=== PATIENT | female | born 1980 | race Caucasian/White ===

== ENCOUNTER 2022-03-01 11:01 | Outpatient (CLI) | payer OTHER | END 2022-03-01 11:02 | disposition critical access hospital (66) | LOC: EMS 11:01 | DX: R06.02 Shortness of breath (principal); R05.9 Cough, unspecified | CPT/HCPCS: A0425; A0429 ==

== ENCOUNTER 2022-03-01 11:41 | Emergency (ER) | payer MEDICAID, OTHER ==
[2022-03-01] MEDS ORDERED: ALBUTEROL 1 PUFF INH STA (12:53)
--- NOTE | 2022-03-01 12:56 | ED Physician Documentation ---
History of Present Illness - Stated complaint Stated Complaint: SOA/COVID+ - Chief complaint Chief Complaint: Resp - Additonal information Additional information: 41-year-old female presents emergency department for evaluation of shortness of air and chest pain in the setting of recent COVID-19 infection. She is fully vaccinated and boosted. However on February 15 she began to have cough cold and congestion. She tested positive for COVID. She has over the course of the last 2 weeks had worsening cough and chest pain. States that she often has pain behind her heart radiating to her back. No nausea or vomiting. She was at work today and had A coughing episode and her coworkers encouraged her to come to the emergency department. She is tearful and anxious appearing. Her asks me to "drug her up" Review of Systems Constitutional: denies: Fever, Chills Eyes: reports: Reviewed and negative Nose: reports: Congestion Throat: reports: Reviewed and negative Cardiac: reports: Chest pain / pressure Respiratory: reports: Dyspnea, Cough, Wheezing GI: reports: Reviewed and negative : reports: Reviewed and negative Skin: reports: Reviewed and negative Musculoskeletal: reports: Reviewed and negative PD PAST MEDICAL HISTORY - Present Medications Home Medications: Ambulatory Orders Medication Instructions Recorded Confirmed Albuterol Sulf [Ventolin Hfa 1 - 2 puffs INH Q4HR PRN #1 each 03/01/22 Inhaler] Benzonatate [Tessalon] 200 mg PO TID PRN #20 cap 03/01/22 - Allergies Allergies/Adverse Reactions: Allergies Allergy/AdvReac Type Severity Reaction Status Date / Time No Known Drug Allergies Allergy Verified 03/01/22 11:51 PD ED PE NORMAL - General General: Alert and oriented X 3. No: No acute distress (Anxious appearing) - HEENT HEENT: Atraumatic, Moist mucous membranes - Neck Neck: Supple, no meningeal sign, No adenopathy - Cardiac Cardiac: RRR, No murmur, No gallop - Respiratory Respiratory: No respiratory distress. No: Clear bilaterally (Bilateral upper lobe rhonchi. Faint scattered expiratory wheezes) - Abdomen Abdomen: Normal bowel sounds, Soft - Back Back: No CVA TTP, No spinal TTP - Derm Derm: Normal color, Warm and dry, No rash - Extremities Extremities: No deformity - Neuro Neuro: Alert and oriented X 3 Eye Opening: Spontaneous Motor: Obeys Commands Verbal: Oriented GCS Score: 15 Results - Vitals Vitals: Vital Signs - 24 hr 03/01/22 03/01/22 03/01/22 11:51 12:16 13:09 Temperature 37.0 C 37.1 C Heart Rate 102 H 86 80 Respiratory 18 20 18 Rate Blood Pressure 144/91 H 169/119 H O2 Saturation 99 99 03/01/22 14:00 Temperature Heart Rate 105 H Respiratory 27 H Rate Blood Pressure 128/85 H O2 Saturation 99 Oxygen O2 Source Room air - EKG (time done) 1158 Rate: Rate (enter#) (92) Rhythm: NSR [place]: Normal Intervals: Normal [place]. No: Prolonged QT QRS: Normal Ischemia: Non specific changes Compare to prior EKG: Old EKG unavailable Computer interpretation: Agree with computer - Labs Labs: Laboratory Tests 03/01/22 03/01/22 03/01/22 13:01 13:01 13:01 WBC 10.5 RBC 4.33 Hgb 13.4 Hct 40.5 MCV 93.5 MCH 30.9 MCHC 33.1 RDW 12.5 Plt Count 232 MPV 13.8 H Neut # (Auto) 7.0 H Lymph # (Auto) 2.6 [place] # (Auto) 0.8 Eos # (Auto) 0.0 Baso # (Auto) 0.0 Absolute Nucleated RBC 0.00 Nucleated RBC % 0.0 Sodium 139 Potassium 3.8 Chloride 107 Carbon Dioxide 23 Anion Gap 9.0 BUN 7 Creatinine 0.6 Estimated GFR (MDRD) 111 Glucose 95 Calcium 8.6 Total Bilirubin 0.7 AST 27 ALT 68 H Alkaline Phosphatase 71 Troponin I High Sens 2.8 Total Protein 6.8 Albumin 4.1 Globulin 2.7 Albumin/Globulin Ratio 1.5 Lipase 28 - Rads (name of study) cxr Radiology: Final report received (No acute cardiopulmonary process demonstrated radiographically) PD MEDICAL DECISION MAKING - ED course Complexity details: reviewed results, re-evaluated patient, considered differential, d/w patient ED course: 41-year-old female presents emergency department for evaluation of persistent cough that began after COVID-19 infection on 15 February. Patient is vaccinated and boosted. She reports that she is having chest pain especially when breathing. She has been using DayQuil and NyQuil without relief of symptoms. She tested negative for COVID 4 days ago. She had a coughing spell at work which prompted the ER visit. On presentation she is alert well-appearing though crying and anxious. Simply reports she is tired of being sick. No fevers. No hypoxia. On cardiopulmonary auscultation there were some diffuse rhonchi and faint wheezes. We did give her some albuterol here in the emergency department which fully resolve the wheeze and improve the cough. Chest x-ray showed no acute findings. Given the report of chest pain a screening EKG was also completed and found to be nonischemic. Given duration of symptoms 1 negative biomarker should suffice and it was reassuringly negative. CBC showed no worrisome leukocytosis and electrolytes without acute abnormalities. 9 at this time there is no indication for antibiotics given lack of focal opacity in the chest x-ray. By Wells criteria she is considered low risk for PE and we deferred a D-dimer or chest CT study. I making the recommendation to use albuterol as well as Tessalon Perles at home for control of the cough. She is encouraged to follow closely with her primary care provider. Emergent return precautions were discussed for failure symptoms to resolve. Departure - Departure Disposition: Home, Self Care Clinical Impression: Upper respiratory infection Qualifiers: URI type: unspecified URI Qualified Code(s): J06.9 - Acute upper respiratory infection, unspecified Condition: Stable Record reviewed to determine appropriate education?: Yes Prescriptions: Albuterol Sulf [Ventolin Hfa Inhaler] 1 - 2 puffs INH Q4HR PRN #1 each PRN Reason: Shortness Of Air/Wheezing Benzonatate [Tessalon] 200 mg PO TID PRN #20 cap PRN Reason: Cough Comments: Yasmin you are seen today in the emergency department because you have had a persistent cough that began after recent COVID-19 infection on 15 February. Here in the emergency department your chest x-ray is normal. There is nothing to suggest broken ribs, congestive heart failure or even pneumonia. We did do a CBC, electrolytes as well as her troponin. All your labs are essentially normal. In order to help control the cough in the emergency department we did give you some albuterol. I would encourage you to use this at home 4-6 times a day with a spacer. This can help reduce bronchospasm that may be contributing to your cough. I have also sent a prescription for Tessalon Perles a cough suppressant to the [facility] in [place]. A dose of Sudafed 30 mg once or twice daily can help with nasal congestion and reduce postnasal drip that is contributing to your symptoms. Ibuprofen 600 mg can be helpful for the body aches and chest pains. If you find that your symptoms or not getting better over the course of the next 7 to 10 days, you develop new fevers, have any fainting episodes and please return immediately to the ER but I do encourage you to have very close follow-up with your primary care doctor to discuss this ED visit.
--- NOTE | 2022-03-01 13:00 | XRAY Report ---
PROCEDURE: Chest 1 View X-Ray INDICATIONS: Chest pain TECHNIQUE: One view of the chest was acquired. COMPARISON: None. FINDINGS: Surgical changes and devices: None. Lungs and pleura: No pleural effusions or pneumothorax. Lungs are clear. Mediastinum: Mediastinal contours appear normal. Heart size is normal. Bones and chest wall: No suspicious bony lesions. Overlying soft tissues appear unremarkable. IMPRESSION: No acute cardiopulmonary process demonstrated radiographically. Reviewed by: Harshad Araiza MD on 03/01/2022 12:59 PM PST Approved by: Harshad Araiza MD on 03/01/2022 12:59 PM PST Station ID: [id number]
[2022-03-01 13:15] LABS: BASOPHILS % (AUTO) 0.3 %; EOSINOPHILS % (AUTO) 0.2 %; HCT - HEMATOCRIT 40.5 % (37.0-47.0); HGB - HEMOGLOBIN 13.4 g/dL (12.0-16.0); LYMPHOCYTES # (AUTO) 2.6 10^3/uL (1.5-3.5); LYMPHOCYTES % (AUTO) 24.8 %; MEAN CORPUSCULAR HEMOGLOBIN 30.9 pg (27.0-31.0); MEAN CORPUSCULAR HGB CONC 33.1 g/dL (32.0-36.0); MEAN CORPUSCULAR VOLUME 93.5 fL (81.0-99.0); MEAN PLATELET VOLUME 13.8 fL (7.9-10.8); MONOCYTES # (AUTO) 0.8 10^3/uL (0.0-1.0); MONOCYTES % (AUTO) 7.8 %; NEUTROPHILS % (AUTO) 66.5 %; PLT - PLATELET COUNT 232 10^3/uL (130-450); RED BLOOD COUNT 4.33 10^6/uL (4.20-5.40); RED CELL DISTRIBUTION WIDTH 12.5 % (12.0-15.0); WHITE BLOOD COUNT 10.5 x10^3/uL (4.8-10.8)
[2022-03-01 13:37] LABS: ALBUMIN 4.1 g/dL (3.2-5.5); ALBUMIN/GLOBULIN RATIO 1.5 (1.0-2.2); BILIRUBIN,TOTAL 0.7 mg/dL (0.2-1.0); CALCIUM 8.6 mg/dL (8.5-10.3); CREATININE 0.6 mg/dL (0.4-1.0); POTASSIUM 3.8 mmol/L (3.5-5.0); TOTAL PROTEIN 6.8 g/dL (6.7-8.2)
[2022-03-01 14:04] VITALS: BP 128/85
== END 2022-03-01 14:58 | disposition home or self-care (01) ==
LOC: EDUNIT# → ED 11:41
DX: J06.9 Acute upper respiratory infection, unspecified (principal)
CPT/HCPCS: 36415; 80053; 83690; 84484; 85025; 93005; 94640; 99284

== ENCOUNTER 2022-11-14 09:40 | Outpatient (CLI) | payer OTHER ==
[2022-11-14 10:06] LABS: BASOPHILS # (AUTO) 0.1 10^3/uL (0.0-0.1); BASOPHILS % (AUTO) 0.6 %; EOSINOPHILS # (AUTO) 0.2 10^3/uL (0.0-0.7); EOSINOPHILS % (AUTO) 1.8 %; HCT - HEMATOCRIT 44.1 % (37.0-47.0); HGB - HEMOGLOBIN 14.6 g/dL (12.0-16.0); LYMPHOCYTES # (AUTO) 2.8 10^3/uL (1.5-3.5); MEAN CORPUSCULAR HEMOGLOBIN 31.3 pg (27.0-31.0); MEAN CORPUSCULAR HGB CONC 33.1 g/dL (32.0-36.0); MEAN CORPUSCULAR VOLUME 94.6 fL (81.0-99.0); MEAN PLATELET VOLUME 13.4 fL (7.9-10.8); MONOCYTES # (AUTO) 0.7 10^3/uL (0.0-1.0); NEUTROPHILS # (AUTO) 5.3 10^3/uL (1.5-6.6); NEUTROPHILS % (AUTO) 58.2 %; PLT - PLATELET COUNT 242 10^3/uL (130-450); RED BLOOD COUNT 4.66 10^6/uL (4.20-5.40); RED CELL DISTRIBUTION WIDTH 12.3 % (12.0-15.0)
== END 2022-11-14 09:41 | disposition home or self-care (01) ==
LOC: LAB 09:40
PROVIDERS: ATTEND Obstetrics & Gynecology
DX: Z01.812 Encounter for preprocedural laboratory examination (principal); N93.9 Abnormal uterine and vaginal bleeding, unspecified
CPT/HCPCS: 36415; 85025; 86850; 86900; 86901

== ENCOUNTER 2022-11-15 07:55 | Day surgery (SDC) | payer OTHER ==
[2022-11-15] MEDS ORDERED: ceFAZolin 2 GM VIAL ONE (08:11)
[2022-11-15 08:15] LABS: HCG UR QUAL NEGATIVE
[2022-11-15] MEDS ORDERED: fentaNYL 100 MCG/2 ML VIAL ONE (08:23)
[2022-11-15] MEDS ORDERED: MIDAZOLAM 2 MG/2 ML VIAL ONE (08:23)
[2022-11-15] MEDS ORDERED: LIDOCAINE 2% URO-JET 5 ML SYRINGE UR ONE (08:32)
[2022-11-15] MEDS ORDERED: LIDOCAINE 1%-EPI 1:100000 20 ML MDV ONE (08:32)
[2022-11-15] MEDS ORDERED: METHYLENE BLUE 0.5% 50 MG/10 ML AMPULE ONE (08:32)
[2022-11-15] MEDS ORDERED: BUPIVACAINE 0.25% PF 30 ML VIAL ONE (08:33)
[2022-11-15] MEDS ORDERED: LACTATED RINGERS 1,000 ML IV ONE ×2 (08:34→13:40)
[2022-11-15] MEDS ORDERED: VASOPRESSIN 20 UNIT/ML VIAL ONE (08:35)
[2022-11-15] MEDS ORDERED: ONDANSETRON 4 MG/2 ML VIAL ONE (09:16)
[2022-11-15] MEDS ORDERED: ACETAMINOPHEN 1,000 MG/100 ML 1,000 MG/100 ML BAG IV ONE (09:16)
[2022-11-15] MEDS ORDERED: ROCURONIUM 50 MG/5 ML VIAL ONE (09:16)
[2022-11-15] MEDS ORDERED: PROPOFOL 500 MG/50 ML 500 MG/50 ML VIAL ONE ×2 (09:16→09:52)
[2022-11-15] MEDS ORDERED: KETOROLAC 30 MG/ML VIAL ONE (09:16)
[2022-11-15] MEDS ORDERED: DEXAMETHASONE 4 MG/ML VIAL ONE (09:16)
[2022-11-15] MEDS ORDERED: fentaNYL 100 MCG/2 ML VIAL IVP PRN (09:22)
[2022-11-15] MEDS ORDERED: NALOXONE 0.4 MG/ML VIAL IVP PRN (09:22)
[2022-11-15] MEDS ORDERED: ATROPINE ABBOJECT 1 MG/10 ML SYRINGE IVP PRN (09:22)
[2022-11-15] MEDS ORDERED: ONDANSETRON 4 MG/2 ML VIAL IVP PRN (09:22)
[2022-11-15] MEDS ORDERED: ePHEDrine 50 MG/ML VIAL IVP PRN (09:22)
[2022-11-15] MEDS ORDERED: HYDROmorphone 0.5 MG/0.5 ML SYRINGE IVP PRN (09:22)
--- NOTE | 2022-11-15 09:22 | ANESTHESIA ---
Pre-Anesthesia VS, & Labs - Diagnosis abnormal uterine bleeding - Procedure total lap hysterectomy Vital Signs: Temp Pulse Resp BP Pulse Ox O2 Flow Rate 36 C L 88 18 136/90 H 99 11/15/22 08:16 11/15/22 08:16 11/15/22 08:16 11/15/22 08:16 11/15/22 08:16 Height: 5 ft 4 in Weight (kg): 84 kg Body Mass Index: 31.8 BMI Classification: Obese - NPO >8 hours - Is Patient ?: No - Lab Results Lab results reviewed: Yes Home Medications and Allergies Home Medications: Ambulatory Orders Gabapentin [Neurontin] 300 mg PO HS 11/10/22 Propranolol HCl 20 mg PO QPM 11/10/22 Gabapentin [Neurontin] 300 mg PO HS 11/10/22 Propranolol HCl 20 mg PO QPM 11/10/22 Allergies/Adverse Reactions: Allergies Allergy/AdvReac Type Severity Reaction Status Date / Time No Known Drug Allergies Allergy Verified 03/01/22 11:51 Anes History & Medical History - Anesthetic History Anesthesia Complications: reports: No previous complications Family history of Anesthesia Complications: Denies Family history of Malignant Hyperthermia: Denies - Medical History Cardiovascular: reports: None Pulmonary: reports: None Gastrointestinal: reports: None Urinary: reports: None Neuro: reports: None Musculoskeletal: reports: None Endocrine/Autoimmune: reports: None Skin: reports: None Smoking Status: Never smoker - Surgical History Gynecologic: reports: section Exam General: Alert, Oriented x3, Cooperative Dental: WNL Mouth Openin Fingerbreadth Mallampati classification: III Thyromental Distance: 4-6 cm Respiratory: Lungs clear Cardiovascular: Regular rate Plan Anesthesia Type: General Consent for Procedure(s) Verified and Reviewed: Yes Code Status: Attempt Resuscitation ASA classification: 1-Healthy patient Is this case an emergency?: No
[2022-11-15] MEDS ORDERED: diphenhydrAMINE INJ 50 MG/ML VIAL ONE (09:29)
[2022-11-15] MEDS ORDERED: LIDOCAINE 1%-EPI 1:100000 20 ML MDV SUBQ ONE ×2 (09:53)
[2022-11-15] MEDS ORDERED: BUPIVACAINE 0.25% PF 30 ML VIAL SUBQ ONE ×2 (09:54)
[2022-11-15] MEDS ORDERED: LACTATED RINGERS 1,000 ML IV SCH (10:00)
[2022-11-15] MEDS ORDERED: PROPOFOL 200 MG/20 ML VIAL IVP ONE ×2 (11:12→12:15)
[2022-11-15] MEDS ORDERED: HYDROmorphone 1 MG/ML CARPUJECT ONE (11:38)
[2022-11-15] MEDS ORDERED: SUGAMMADEX 200 MG/2 ML VIAL IVP ONE (11:51)
[2022-11-15] MEDS ORDERED: LIDOCAINE-PF 2% 10 ML AMP SUBQ ONE (11:51)
[2022-11-15] MEDS ORDERED: ceFAZolin 1 GM VIAL ONE (12:53)
[2022-11-15] MEDS ORDERED: HYDROmorphone 1 MG/ML CARPUJECT IVP PRN (13:18)
[2022-11-15] MEDS ORDERED: SCOPOLAMINE PATCH TOP PRN (13:18)
[2022-11-15] MEDS ORDERED: ONDANSETRON ODT 4 MG TABLET TL PRN (13:18)
--- NOTE | 2022-11-15 13:25 | OPERATIVE REPORT ---
Operative Report - General Planned Procedure: Laparoscopic hysterectomy and cystoscopy Pre-Op Diagnosis: Abnormal uterine bleeding Procedure Performed: Laparoscopic hysterectomy and cystoscopy Post Op Diagnosis: Abnormal uterine bleeding - Procedure Note Primary Surgeon: Luis Teran MD Secondary Surgeon: Alise Escobedo DO Anesthesia Provider: Manuel Jaime CRNA Anesthesia Technique: General ET tube Pathology: Uterus, cervix, bilateral fallopian tubes IV Fluids (mL): 1,200 Estimated Blood Loss (mL): 100 Urine Output (mL): 350 Findings: Bulky uterus. Normal-appearing ovaries. Inflammation and adhesions in the posterior cul-de-sac. Complications: None - Other Other Information/Narrative: Counseling Patient was counseled on the risks benefits and alternatives of laparoscopic hysterectomy. The risk of bleeding including the risk for transfusion and transfusion risks were reviewed. She was counseled on the risk of infection. She was counseled on the risk of injury to surrounding organs including but not limited to the bowel bladder ureters or ovaries possibly requiring further more extensive surgery possibly at a later date. She was counseled on the possible risk of conversion to an open procedure especially if scar tissue or bleeding was encountered or if an above-noted injury occurred. He is counseled that removal of the ovaries would result in menopause. She was counseled that removal of her uterus would prevent her from having children in the future. Questions were answered the patient gave informed consent for the procedure. Technique Patient was taken to the operating room where a timeout was performed the patient was given preoperative antibiotics. General endotracheal anesthesia was found to be adequate. Patient was positioned on the operating table in dorsal lithotomy position in [facility] stirrups. A bear hugger was placed and pressure points were padded. Patient was then prepped and draped in the normal sterile fashion using Hibiclens vaginally and ChloraPrep abdominally. An exam under anesthesia was performed and was consistent with her preoperative evaluation. A Diop catheter was placed under sterile conditions. A bivalve speculum was inserted into the vagina. A screen door maker uterine manipulator was inserted through the cervix to facilitate uterine manipulation during the case. The speculum was then removed. Attention was turned to the abdomen in a sterile fashion. A 5 mm umbilical incision was made with a scalpel following infusion of local anesthetic. A 5 mm trocar and sleeve were inserted through the incision into the peritoneum under laparoscopic visualization. Pneumoperitoneum was obtained with approximately 3 L of carbon dioxide. Inspection of the underlying bowel and vasculature reveals no injuries from laparoscopic entry. Next a 5 mm right lower quadrant trocar was placed under laparoscopic visualization lateral to the course of the inferior epigastric vessels. Next a left 5 mm lower quadrant trocar was placed under laparoscopic visualization lateral to the course of the inferior epigastric vessels. Trendelenberg positioning was obtained allowing the bowel to fall from the pelvis. We did notice some adhesions to the posterior cervix/cul-de-sac with some serosal bleeding with uterine ablation. A LigaSure was used to dissect the left fallopian tube from the ovary, and this was carried up to mesosalpinx and transected at the cornua and removed from the belly. The right fallopian tube was dissected from the ovary, coagulated and cut along the medial salpinx then transected at the cornua and then removed from the body. The right round ligament was coagulated and transected using the LigaSure device. The course of the ureter was identified deep and lateral to our operative field. The utero- ovarian vessels were coagulated and transected. Progress was made down the broad ligament to the level of the uterine vessels. Uterus was elevated using the uterine manipulator, the uterine vessel was skeletonized identified doubly coagulated and transected using LigaSure device at the level of the colpotomy. Bladder flap was created across the anterior surface of the uterus, but thick tissue from her previous scar made a difficult dissection. Attention was turned to the left side. The left round ligament was coagulated and transected using the LigaSure device. The utero-ovarian vessels were coagulated and transected. Progress was made down the broad ligament to the level of the uterine vessel. Uterus was elevated using the uterine manipulator, the uterine vessel was skeletonized identified doubly coagulated and transected using the LigaSure device at the level of the colpotomy. The bladder flap was further developed across the anterior surface the uterus several centimeters below the colpotomy ring. The uterus was elevated using the uterine manipulator and the colpotomy incision was made using the monopolar hook device beginning posteriorly and proceeding anteriorly using the colpotomy ring as a guide. The uterus was then removed through the vagina. The pelvis was cleared of clot and debris to reobtaining pneumoperitoneum. We attempted to close the vaginal cuff was closed using a 2-0 V-lock incorporating the uterosacral ligaments, but the thick tissue made this difficult, so attention was turned to a vaginal closure. This was closed with a running suture of 0 Vicryl. On reexamination of the vaginal cuff from the abdomen showed less tissue than desirable, so the suture was removed and a second closure was performed. This allowed a more of the tissue to be closed and better hemostasis. Due to the thickened tissue, we did place a piece of Surgicel over the cuff. Following closure of the vaginal cuff hemostasis was ensured. There was no evidence of injury to the bowel bladder or ureters bilaterally. Vascular pedicles remained hemostatic. The abdomen and pelvis were copiously irrigated and cleared of clot and debris. Pneumoperitoneum was released and skin was closed in a subcuticular fashion using 4-0 Monocryl. Cystoscopy: The cystoscope was then introduced after removal of the Diop she does have a small urethra and it was mildly dilated to allow advancement of the cystoscope. Under direct visualization using normal saline distending media the ureters were identified bilaterally and equal brisk ureteral jets were noted. The bladder was distended and the anatomic boundaries of the bladder were inspected and found to be free from injury. The bladder was drained and the cystoscope was removed. The Diop catheter was replaced in a sterile fashion. The patient was then cleaned and dried and legs brought down out of lithotomy position simultaneously. Sponge lap and needle counts were reported correct by the nursing staff following the procedure. I appreciate the assistance of Dr. Escobedo during this procedure, and the assistance in retraction, visualization, dissection, and overall assistance during the case were instrumental to the patient's wellbeing.
--- NOTE | 2022-11-15 14:19 | ANESTHESIA POST OP EVALUATION ---
Anesthesia Post Eval - Post Anesthesia Eval Vitals: Last Vital Signs Temp 36.2 C L 11/15/22 14:06 Pulse 94 11/15/22 14:06 Resp 10 L 11/15/22 14:06 BP 108/63 11/15/22 14:06 Pulse Ox 94 11/15/22 14:06 O2 Flow Rate CV Function Including HR & BP: Stable Pain Control: Satisfactory Nausea & Vomiting: Negative Mental Status: Baseline Respiratory Status: Airway Patent Hydration Status: Satisfactory Anesthesia Complications: None
[2022-11-15] MEDS: ACETAMINOPHEN 500 MG TABLET PO SCH ×2 (14:51→21:43)
[2022-11-15] MEDS: LACTATED RINGERS 1,000 ML IV SCH ×2 (14:56→19:55)
[2022-11-15] MEDS: oxyCODONE 5 MG TABLET PO PRN ×3 (15:48→23:46)
[2022-11-15] MEDS: KETOROLAC 30 MG/ML VIAL IVP SCH ×2 (15:48→23:46)
[2022-11-15] MEDS: SIMETHICONE CHEW 80 MG TABLET PO PRN ×2 (15:48→21:59)
[2022-11-15] MEDS: HYDROmorphone 1 MG/ML CARPUJECT IVP PRN ×2 (18:45→21:43)
[2022-11-15] MEDS: DOCUSATE SODIUM 100 MG CAPSULE PO SCH (21:43)
[2022-11-16] MEDS: HYDROmorphone 1 MG/ML CARPUJECT IVP PRN ×3 (00:52→07:41)
[2022-11-16] MEDS: oxyCODONE 5 MG TABLET PO PRN ×3 (04:09→12:29)
[2022-11-16 05:31] LABS: BASOPHILS % (AUTO) 0.2 %; EOSINOPHILS % (AUTO) 0.1 %; HGB - HEMOGLOBIN 11.6 g/dL (12.0-16.0); LYMPHOCYTES # (AUTO) 2.1 10^3/uL (1.5-3.5); LYMPHOCYTES % (AUTO) 13.8 %; MEAN CORPUSCULAR HEMOGLOBIN 31.8 pg (27.0-31.0); MEAN CORPUSCULAR HGB CONC 33.1 g/dL (32.0-36.0); MEAN CORPUSCULAR VOLUME 95.9 fL (81.0-99.0); MEAN PLATELET VOLUME 12.8 fL (7.9-10.8); MONOCYTES # (AUTO) 1.4 10^3/uL (0.0-1.0); NEUTROPHILS # (AUTO) 11.8 10^3/uL (1.5-6.6); NEUTROPHILS % (AUTO) 76.3 %; PLT - PLATELET COUNT 202 10^3/uL (130-450); RED BLOOD COUNT 3.65 10^6/uL (4.20-5.40); WHITE BLOOD COUNT 15.5 x10^3/uL (4.8-10.8)
[2022-11-16] MEDS: ACETAMINOPHEN 500 MG TABLET PO SCH (06:08)
[2022-11-16] MEDS: KETOROLAC 30 MG/ML VIAL IVP SCH (06:08)
[2022-11-16] MEDS: LACTATED RINGERS 1,000 ML IV SCH (06:43)
[2022-11-16] MEDS: DOCUSATE SODIUM 100 MG CAPSULE PO SCH (08:39)
--- NOTE | 2022-11-16 08:51 | PROVIDER PROGRESS NOTE ---
Objective - Vital Signs/Intake & Output Vital Signs: Vital Signs x48h Temp Pulse Resp BP Pulse Ox 11/16/22 06:00 98.6 F 95 16 108/79 97 Intake & Output: Intake & Output 11/13/22 11/14/22 11/15/22 11/16/22 23:59 23:59 23:59 23:59 Intake Total 9819.123 2148 Output Total 1775 1700 Balance -166.667 -300 - Lab Results Fish Bones: 11/16/22 05:26 Other Labs: Lab Results x24hrs 11/16/22 Range/Units 05:26 WBC 15.5 H (4.8-10.8) x10^3/uL RBC 3.65 L (4.20-5.40) 10^6/uL Hgb 11.6 L (12.0-16.0) g/dL Hct 35.0 L (37.0-47.0) % MCV 95.9 (81.0-99.0) fL MCH 31.8 H (27.0-31.0) pg MCHC 33.1 (32.0-36.0) g/dL RDW 12.0 (12.0-15.0) % Plt Count 202 (130-450) 10^3/uL MPV 12.8 H (7.9-10.8) fL Neut # (Auto) 11.8 H (1.5-6.6) 10^3/uL Lymph # (Auto) 2.1 (1.5-3.5) 10^3/uL [place] # (Auto) 1.4 H (0.0-1.0) 10^3/uL Eos # (Auto) 0.0 (0.0-0.7) 10^3/uL Baso # (Auto) 0.0 (0.0-0.1) 10^3/uL Absolute Nucleated RBC 0.00 x10^3/uL Nucleated RBC % 0.0 /100WBC
[2022-11-16] MEDS ORDERED: ENOXAPARIN 40 MG/0.4 ML SYRINGE SUBQ SCH (09:00)
[2022-11-16] MEDS ORDERED: IBUPROFEN 600 MG TABLET PO SCH ×2 (10:47→12:00)
[2022-11-16 11:55] VITALS: BP 120/77
--- NOTE | 2022-11-16 12:10 | Discharge Plan ---
Discharge Plan Problem Reviewed?: Yes Disposition: Home, Self Care Condition: Good Prescriptions: Acetaminophen [Acetaminophen Extra Strength] 1,000 mg PO Q6HR #60 tablet Docusate Sodium 100Mg Capsule [Colace 100Mg Capsule] 100 - 200 mg PO BID PRN #60 cap PRN Reason: Constipation Ibuprofen [Motrin] 600 mg PO Q6H PRN #30 tab PRN Reason: Pain oxyCODONE [Roxicodone] 5 mg PO Q4H PRN #20 tablet PRN Reason: Severe Pain Diet: Regular Activity Restrictions: Additional Comments Shower Restrictions: No Driving Restrictions: Yes (While taking opioids and while having severe pain) Instruction Topics: Hysterectomy Laparoscopic Dc No Smoking: If you smoke, Please STOP! Call for help. Follow-up with: Luis Teran MD [Provider Admit Priv/Credential] -
--- NOTE | 2022-11-16 12:14 | DISCHARGE SUMMARY ---
Discharge Summary Admit Date: 11/15/22 Discharge Date: 11/16/22 Discharging Provider: Luis Teran MD Condition at Discharge: Good Discharge Disposition: 01 Home, Self Care - DIAGNOSES Admission Diagnoses: Abnormal uterine bleeding Discharge Diagnoses with Status of Each Condition: Abnormal uterine bleeding: Status post total laparoscopic hysterectomy - HPI History of Present Illness: Subjective: Patient is a 42-year-old female postoperative day 1 from a total laparoscopic hysterectomy. Pain doing well, but having some increased episodes intermittently. Has been well without IV pain medicines since this morning. Desires to go home. Ambulating without difficulty although cautiously. No calf pain or tenderness. No shortness of breath or chest pain. Overnight events: No acute events Diop was removed and has voided several times. Physical exam: Constitutional: alert, oriented, no acute distress Cardiovascular: Regular rate and rhythm. No murmurs, rubs, gallops. Respiratory: No respiratory distress. Clear to auscultation bilaterally. Abdomen: Incision clean, dry, intact. Appropriate tenderness postoperative. Extremities: No swelling or tenderness. No cords. Distal pulses intact. Psych: affect and mood appropriate, normal interaction, good eye contact. Assessment and plan Patient is a 6-year-old female postoperative day 1 from a [facility]. 1. Postoperative day 1 -Routine postoperative care -Appropriate drop in postoperative hemoglobin. -No significant vaginal bleeding -Discharging today -[facility] 2. VTE prophylaxis -SCDs in place. -Enoxaparin 40 mg daily - HOSPITAL COURSE Hospital Course: Patient was admitted for a planned total laparoscopic hysterectomy for abnormal uterine bleeding and had an uneventful surgery. She did have thickened tissue from her previous scars which did have a longer dissection, but relatively unremarkable. Postoperative course was uncomplicated, although she did have some residual pain but is doing well today. She desires to go home. Has follow-up with me in 2 weeks. Nothing the vagina for 6 weeks. Discussed bleeding precautions. Discussed pain expectations and medication management. - ALLERGIES Allergies/Adverse Reactions: Allergies Allergy/AdvReac Type Severity Reaction Status Date / Time No Known Drug Allergies Allergy Verified 03/01/22 11:51 - MEDICATIONS Home Medications: Ambulatory Orders Medication Instructions Recorded Confirmed Gabapentin [Neurontin] 300 mg PO HS 11/10/22 11/15/22 Propranolol HCl 20 mg PO QPM 11/10/22 11/15/22 Acetaminophen [Acetaminophen Extra 1,000 mg PO Q6HR #60 tablet 11/16/22 Strength] Docusate Sodium 100Mg Capsule 100 - 200 mg PO BID PRN #60 cap 11/16/22 [Colace 100Mg Capsule] Ibuprofen [Motrin] 600 mg PO Q6H PRN #30 tab 11/16/22 Phenazopyridine HCl [Pyridium] 200 mg PO TID #9 tablet 11/16/22 oxyCODONE [Roxicodone] 5 mg PO Q4H PRN #20 tablet 11/16/22 - LABS Result Diagrams: 11/16/22 05:26 - FOLLOW UP Follow Up: In 2 weeks with Luis Teran MD - TIME SPENT Time Spent in Discharge (Minutes): 30
== END 2022-11-16 14:22 | disposition home or self-care (01) ==
LOC: SDS 07:55 → MS2 13:45 → SDS 11-16 14:22
PROVIDERS: ATTEND Obstetrics & Gynecology
PROC: 0UT74ZZ Resection of Bilateral Fallopian Tubes, Percutaneous Endoscopic Approach (ICD-10-PCS; 2022-11-15)
PROC: 0UT94ZZ Resection of Uterus, Percutaneous Endoscopic Approach (ICD-10-PCS; principal; 2022-11-15 10:15)
DX: N93.9 Abnormal uterine and vaginal bleeding, unspecified (principal); N80.03 Adenomyosis of the uterus; N72 Inflammatory disease of cervix uteri; E66.9 Obesity, unspecified; Z68.31 Body mass index [BMI] 31.0-31.9, adult
CPT/HCPCS: 36415; 58571; 81025; 85025; A9270; J0131; J1170; J1200; J1650; J7120; Q0162

== ENCOUNTER 2022-11-23 12:10 | Outpatient (CLI) | payer OTHER ==
[2022-11-23 17:50] LABS: HCT - HEMATOCRIT 42.2 % (37.0-47.0); HGB - HEMOGLOBIN 13.6 g/dL (12.0-16.0); MEAN CORPUSCULAR HEMOGLOBIN 31.6 pg (27.0-31.0); MEAN CORPUSCULAR HGB CONC 32.2 g/dL (32.0-36.0); MEAN CORPUSCULAR VOLUME 97.9 fL (81.0-99.0); MEAN PLATELET VOLUME 13.9 fL (7.9-10.8); RED BLOOD COUNT 4.31 10^6/uL (4.20-5.40); RED CELL DISTRIBUTION WIDTH 12.5 % (12.0-15.0); WHITE BLOOD COUNT 11.5 x10^3/uL (4.8-10.8)
[2022-11-23 18:13] LABS: ALBUMIN 4.2 g/dL (3.2-5.5); ALBUMIN/GLOBULIN RATIO 1.4 (1.0-2.2); BILIRUBIN,TOTAL 0.5 mg/dL (0.2-1.0); CALCIUM 9.7 mg/dL (8.5-10.3); CREATININE 0.7 mg/dL (0.6-1.3); POTASSIUM 4.1 mmol/L (3.5-4.5); TOTAL PROTEIN 7.2 g/dL (6.4-8.9)
== END 2022-11-23 12:11 | disposition home or self-care (01) ==
LOC: LAB.N 12:10
PROVIDERS: ATTEND Obstetrics & Gynecology
DX: Z48.816 Encounter for surgical aftercare following surgery on the genitourinary system (principal)
CPT/HCPCS: 36415; 80053; 85025; 85027